=== PATIENT | male | born 1960 | race African-American/Black ===

== ENCOUNTER 2016-09-24 10:37 | Emergency (ER) | payer SELFPAY ==
[2016-09-24 10:41] VITALS: BP 139/80
[2016-09-24] MEDS ORDERED: IPRATROPIUM/ALBUTEROL 0.5-2.5 MG/3 ML AMPUL NEB ONE (10:58)
[2016-09-24] MEDS ORDERED: PREDNISONE 20 MG TABLET PO ONE (10:58)
[2016-09-24] MEDS ORDERED: ALBUTEROL SULFATE HFA (90 MCG/PUFF) 8 GM MDI (1 MDI/ER DISP) IH ONE (11:38)
--- NOTE | 2016-09-24 12:09 | ER Document Report ---
ED General - General Chief Complaint: Breathing Difficulty Stated Complaint: DIFFICULTY BREATHING TRAVEL OUTSIDE OF THE [place] IN LAST 30 DAYS: No - HPI Patient complains to provider of: difficulty breathing Notes: Patient with difficulty breathing ongoing for approximately about a week with sinus drainage and sinus pressure. Patient states coughing or production. Denies fevers chills nausea vomiting denies any chest pain abdominal pain. Patient does smoke and has been smoking for quite a number years. Per patient - Related Data Allergies/Adverse Reactions: No Known Allergies Allergy (Verified 09/24/16 10:39) Past Medical History - Social History Smoking Status: Current Every Day Smoker Chew tobacco use (# tins/day): No Frequency of alcohol use: None Drug Abuse: None Family History: Reviewed & Not Pertinent Patient has suicidal ideation: No Patient has homicidal ideation: No Renal/ Medical History: Denies: Hx Peritoneal Dialysis Surgical Hx: Negative - Immunizations Hx Diphtheria, Pertussis, Tetanus Vaccination: No Review of Systems - Review of Systems Constitutional: No symptoms reported EENT: No symptoms reported Cardiovascular: No symptoms reported Respiratory: Cough, Short of breath Gastrointestinal: No symptoms reported Genitourinary: No symptoms reported Male Genitourinary: No symptoms reported Musculoskeletal: No symptoms reported Skin: No symptoms reported Hematologic/Lymphatic: No symptoms reported Neurological/Psychological: No symptoms reported Physical Exam - Vital signs Vitals: Temp Pulse Resp BP Pulse Ox 98.3 F 97 22 H 139/80 H 95 09/24/16 10:41 09/24/16 10:41 09/24/16 10:41 09/24/16 10:41 09/24/16 10:41 Interpretation: Normal - General General appearance: Appears well, Alert - HEENT Head: Normocephalic, Atraumatic Eyes: Normal Pupils: PERRL - Respiratory Respiratory status: No respiratory distress Chest status: Nontender Breath sounds: Wheezing - Scattered throughout Chest palpation: Normal - Cardiovascular Rhythm: Regular Heart sounds: Normal auscultation Murmur: No - Abdominal Inspection: Normal Distension: No distension Bowel sounds: Normal Tenderness: Nontender Organomegaly: No organomegaly - Back Back: Normal, Nontender - Extremities General upper extremity: Normal inspection, Nontender, Normal color, Normal ROM , Normal temperature General lower extremity: Normal inspection, Nontender, Normal color, Normal ROM , Normal temperature, Normal weight bearing. No: Maria Victoria's sign - Neurological Neuro grossly intact: Yes Cognition: Normal Orientation: AAOx4 Jaclyn Coma Scale Eye Opening: Spontaneous Jaclyn Coma Scale Verbal: Oriented Jaclyn Coma Scale Motor: Obeys Commands Jalcyn Coma Scale Total: 15 Speech: Normal Motor strength normal: LUE, RUE, LLE, RLE Sensory: Normal - Psychological Associated symptoms: Normal affect, Normal mood - Skin Skin Temperature: Warm Skin Moisture: Dry Skin Color: Normal Course - Re-evaluation Re-evalutation: 09/24/16 12:18 Wheezing improve the breathing treatment. Patient states still somewhat similar however chest x-ray does not show any signs of pneumonia. Patient fell signs are otherwise within normal limits. Patient will be discharged home with an inhaler and prednisone. - Vital Signs Vital signs: Temp Pulse Resp BP Pulse Ox 98.3 F 97 22 H 139/80 H 95 09/24/16 10:41 09/24/16 10:41 09/24/16 10:41 09/24/16 10:41 09/24/16 10:41 Discharge - Discharge Clinical Impression: Dyspnea Qualifiers: Dyspnea type: unspecified Qualified Code(s): R06.00 - Dyspnea, unspecified Condition: Good Disposition: HOME, SELF-CARE Instructions: Dyspnea, Nonspecific ([facility]) Additional Instructions: Please take medication as prescribed. Return to the ER symptoms worsen. Chest x-ray does not show any signs of pneumonia today. Your wheezing did improve the breathing treatment. I will recommend continuing the albuterol inhaler that we gave you here in ER 2 puffs every 4 hours for the next 5 days. After that he may use as necessary. Please take the steroids as prescribed. Return to ER symptoms worsen. Prescriptions: Albuterol Sulfate [Proair HFA] 1 - 2 puff IH Q4 PRN #1 inhaler PRN Reason: Cetirizine HCl [Zyrtec] 10 mg PO DAILY #30 tablet Prednisone [Deltasone 20 mg Tablet] 3 tab PO DAILY 5 Days Forms: Smoking Cessation Education, Return to Work
== END 2016-09-24 12:18 | disposition home or self-care (01) ==
LOC: ER 10:37
DX: R06.02 Shortness of breath (principal); J34.89 Other specified disorders of nose and nasal sinuses; F17.200 Nicotine dependence, unspecified, uncomplicated; R05 Cough; R06.2 Wheezing
CPT/HCPCS: 94640; 99284; 71020; J7512; J3490; J7620

== ENCOUNTER 2017-08-02 10:45 | Emergency (ER) | payer OTHER ==
[2017-08-02] MEDS ORDERED: KETOROLAC TROMETHAMINE INJ/PF 30 MG/1 ML SDV IM ONE (11:13)
[2017-08-02] MEDS ORDERED: DEXAMETHASONE SOD PHOS INJ 10 MG/1 ML VIAL IM ONE (11:13)
--- NOTE | 2017-08-02 11:18 | ER Document Report ---
HPI - HPI Pain Level: 4 Notes: Patient is a 57-year-old male with no significant past medical history who presents to the ED complaining of right lower back pain and right buttock pain intermittently over the last month. Patient states that his pain is described as an occasional sharp pain and soreness. Patient states [place] and [place]. Patient does not recall a specific injury. Patient states that the pain will radiate in from his right back to his right buttock and vice versa, but does not extend to the lower leg. Patient states that he is still eating and drinking without any difficulties. He is urinating normally and having normal bowel movements. He has not had any recent illness. Patient denies any IV drug use, previous injections or surgery to his lower back, or diabetes. Denies any previous history of spinal abscess. Denies any headache, fever, neck pain, URI, sore throat, chest pain, palpitations, syncope, cough, shortness of breath, wheeze, dyspnea, abdominal pain, nausea/vomiting/diarrhea, urinary retention, dysuria, hematuria, loss of control of bowel or bladder, numbness/tingling, saddle anesthesia, muscle paralysis/weakness, or rash. . Pt requesting work note. Pt reports having back pain in the past as well on occasion. - ROS Systems Reviewed and Negative: Yes All other systems reviewed and negative Past Medical History - Social History Smoking Status: Unknown if Ever Smoked Family History: Reviewed & Not Pertinent Renal/ Medical History: Denies: Hx Peritoneal Dialysis - Immunizations Hx Diphtheria, Pertussis, Tetanus Vaccination: No Vertical Provider Document - CONSTITUTIONAL Agree With Documented VS: Yes Notes: PHYSICAL EXAMINATION: GENERAL: Well-appearing, well-nourished and in no acute distress. LUNGS: Breath sounds clear to auscultation bilaterally and equal. No wheezes rales or rhonchi. HEART: Regular rate and rhythm without murmurs, rubs, gallops. ABDOMEN: Soft, nontender, nondistended abdomen. No guarding, no rebound. No masses appreciated. Normal bowel sounds present. No CVA tenderness bilaterally. No obvious pulsatile mass Musculoskeletal: LE's b/l: FROM to passive/active. Strength 5+/5. No deficits noted. No bony tenderness of extremities. Back: FROM to passive/active. Strength 5+/5. No vertebral point tenderness, stepoffs, or deformities. No other bony tenderness, erythema, swelling, or ecchymosis. SLR negative b/l. + mild tenderness to the rt L-paraspinal mm. Mild spasming. + right SI jt tenderness. No foot drop Extremities: No cyanosis, clubbing, or edema b/l. Peripheral pulses 2+. Capillary refill less than 2 seconds. NEUROLOGICAL: Normal speech, ataxic gait. Normal sensory, motor exams. Reflexes 2+ b/l. PSYCH: Normal mood, normal affect. SKIN: Warm, Dry, normal turgor, no rashes or lesions noted. - INFECTION CONTROL TRAVEL OUTSIDE OF THE [place] IN LAST 30 DAYS: No - RESPIRATORY O2 Sat by Pulse Oximetry: 94 Course - Re-evaluation Re-evalutation: 08/02/17 12:34 Patient is an afebrile, well-hydrated, 57-year-old male who presents to the ED with right lower back pain and right sacroiliitis. Vitals are stable. PE is otherwise unremarkable for any focal neurological deficits. L-spine x-ray was unremarkable for any acute pathology. No other labs or imaging warranted at this time based on H&P. Decadron and Toradol given IM today. Low suspicion for any meningitis, fracture, expanding/ruptured AAA, cauda equina syndrome, epidural mass lesion/abscess, herniated disc causing severe spinal stenosis, or other systemic infection at this time. Patient is aware that his condition can change from initial presentation and that he needs monitor symptoms closely for any acute changes. I will send him home with a prescription for naproxen and baclofen. Conservative measures otherwise for symptoms with close monitoring. Recheck with your PCM in 3-5 days. Consider consult orthopedics/physical therapy. Return to the ED with any worsening/concerning symptoms otherwise as reviewed discharge. Patient is in agreement. - Vital Signs Vital signs: Temp Pulse Resp BP Pulse Ox 98.3 F 87 14 103/70 94 08/02/17 11:00 08/02/17 11:00 08/02/17 11:00 08/02/17 11:08/02/17 11:00 Discharge - Discharge Clinical Impression: Sacroiliitis Low back pain Qualifiers: Chronicity: acute Back pain laterality: right Sciatica presence: without sciatica Qualified Code(s): M54.5 - Low back pain Condition: Stable Disposition: HOME, SELF-CARE Instructions: Ice Packs ([facility]), Low Back Pain ([facility]), Muscle Relaxers ([facility]), Muscle Strain ([facility]), Stretching Exercises for the Back ([facility]), Warm Packs ([facility]) Additional Instructions: Rest, Ice Tylenol/ibuprofen as needed Light stretches daily Strength exercises as able Moist heat and massage may help F/u with your PCP in 3-5 days for a recheck Consider consult(s) with Orthopedics/physical therapy for ongoing/worsening symptoms Return to the ED with any worsening symptoms and/or development of fever, headache, chest pain, palpitations, syncope, shortness of breath, trouble breathing, abdominal pain, n/v/d, blood in stool/urine, loss of control of bowel /bladder, urinary retention, muscle weakness/paralysis, saddle anesthesia, numbness/tingling, or other worsening symptoms that are concerning to you. Prescriptions: Baclofen [Baclofen 10 mg Tablet] 5 - 10 mg PO BID PRN #10 tablet PRN Reason: Naproxen 500 mg PO BID PRN #30 tablet PRN Reason: Forms: Return to Work Referrals: [facility] [Provider Group] - Follow up as needed
--- NOTE | 2017-08-02 12:22 | RADIOLOGY REPORT (SQ) ---
EXAM DESCRIPTION: L SPINE WHOLE COMPLETED DATE/TIME: 08/02/2017 12:04 pm REASON FOR STUDY: rt low back pain COMPARISON: None. NUMBER OF VIEWS: Five views including obliques. TECHNIQUE: AP, lateral, oblique, and sacral radiographic images acquired of the lumbar spine. LIMITATIONS: None. FINDINGS: MINERALIZATION: Normal. SEGMENTATION: There appears to be at least partial sacralization of L5 on the right. ALIGNMENT: Normal. VERTEBRAE: Maintained height. No fracture or worrisome bone lesion. DISCS: Preserved height. No significant osteophytes or end plate irregularity. POSTERIOR ELEMENTS: Pedicles and facets are intact. No pars defect or posterior arch defects. HARDWARE: None in the spine. PARASPINAL SOFT TISSUES: Normal. PELVIS: Intact as visualized. No fractures or worrisome bone lesions. SI joints intact. OTHER: No other significant finding. IMPRESSION: L5 appears to represent a transitional vertebra. No acute abnormality is seen. TECHNICAL DOCUMENTATION: JOB ID: [id number] [employer]- All Rights Reserved Reading location - IP/workstation name: [email or web address]
[2017-08-02 13:13] VITALS: BP 120/76
== END 2017-08-02 13:00 | disposition home or self-care (01) ==
LOC: ER 10:45
DX: M46.1 Sacroiliitis, not elsewhere classified (principal); M54.5 Low back pain
CPT/HCPCS: 99283; 96372; 72110; J1885; J1100

== ENCOUNTER 2019-12-25 10:39 | Emergency (ER) | payer OTHER ==
[2019-12-25] MEDS ORDERED: IPRATROPIUM/ALBUTEROL 0.5-2.5 MG/3 ML AMPUL NEB ONE (11:25)
--- NOTE | 2019-12-25 11:27 | ER Document Report ---
ED Medical Screen (RME) - General Chief Complaint: Cough Stated Complaint: COUGH,CONGESTION Time Seen by Provider: 12/25/19 11:20 TRAVEL OUTSIDE OF THE [place] IN LAST 30 DAYS: No - HPI Notes: 12/25/19 11:52 59-year-old male presents to the emergency room with left-sided chest pain and shortness of breath that is become progressively worse over the last day. Patient denies any history of asthma, he does smoke about a half a pack a day for the last 40 years or so. Denies any fevers chills, nausea vomiting or diarrhea. Patient states that he has had this left-sided chest pain sometimes it is worse with coughing sometimes it is not. Has not been seen by a medical provider in "years". Denies any medical problems. Denies any heart history. I have greeted and performed a rapid initial assessment of this patient. A comprehensive ED assessment and evaluation of the patient, analysis of test results and completion of the medical decision making process will be conducted by additional ED providers. PHYSICAL EXAMINATION: GENERAL: Well-appearing, well-nourished and in no acute distress. NECK: Normal range of motion CV: s1, s2 regular LUNGS: Wheezing heard in all lobes throughout - Related Data Allergies/Adverse Reactions: No Known Allergies Allergy (Verified 08/02/17 10:45) Past Medical History Renal/ Medical History: Denies: Hx Peritoneal Dialysis - Immunizations Hx Diphtheria, Pertussis, Tetanus Vaccination: No
[2019-12-25 12:58] LABS: ABSOLUTE EOSINOPHILS # (AUTO) 0.1 10^3/uL (0.0-0.6); ABSOLUTE LYMPHOCYTES (AUTO) 1.9 10^3/uL (0.5-4.7); ABSOLUTE MONOCYTES (AUTO) 1.2 10^3/uL (0.1-1.4); ABSOLUTE NEUT (AUTO) 4.7 10^3/uL (1.7-8.2); BASOPHILS % (AUTO) 0.5 % (0-2); EOSINOPHILS % (AUTO) 1.3 % (0-6); HEMOGLOBIN 13.8 g/dL (13.5-17.0); LYMPHOCYTES % (AUTO) 24.3 % (13-45); MEAN CORPUSCULAR HEMOGLOBIN 33.2 pg (27.0-33.4); MEAN CORPUSCULAR HGB CONC 34.5 g/dL (32.0-36.0); MEAN CORPUSCULAR VOLUME 96 fl (80-97); MONOCYTES % (AUTO) 15.1 % (3-13); PLATELET COUNT 236 10^3/uL (150-450); RED BLOOD COUNT 4.16 10^6/uL (4.35-5.55); SEGMENTED NEUTROPHILS % (AUTO) 58.8 % (42-78); TOTAL CELLS COUNTED % (AUTO) 100 %
[2019-12-25 13:15] LABS: ALBUMIN 4.6 g/dL (3.5-5.0); ALKALINE PHOSPHATASE 76 U/L (38-126); ANION GAP 8 (5-19); ASPARTATE AMINO TRANSFERASE 35 U/L (17-59); BILIRUBIN,TOTAL 0.3 mg/dL (0.2-1.3); BLOOD UREA NITROGEN 11 mg/dL (7-20); CALCIUM 9.5 mg/dL (8.4-10.2); CARBON DIOXIDE 26 mmol/L (22-30); CHLORIDE 105 mmol/L (98-107); GLUCOSE 122 mg/dL (75-110); POTASSIUM 4.4 mmol/L (3.6-5.0); TOTAL PROTEIN 8.1 g/dL (6.3-8.2)
--- NOTE | 2019-12-25 14:07 | RADIOLOGY REPORT (SQ) ---
EXAM DESCRIPTION: CHEST SINGLE VIEW IMAGES COMPLETED DATE/TIME: 12/25/2019 1:57 pm REASON FOR STUDY: cough COMPARISON: 09/24/2016 EXAM PARAMETERS: NUMBER OF VIEWS: One view. TECHNIQUE: Single frontal radiographic view of the chest acquired. RADIATION DOSE: NA LIMITATIONS: None. FINDINGS: LUNGS AND PLEURA: No opacities, masses or pneumothorax. No pleural effusion. MEDIASTINUM AND HILAR STRUCTURES: No masses. Contour normal. HEART AND VASCULAR STRUCTURES: Mild cardiac enlargement. No failure. BONES: No acute findings. HARDWARE: None in the chest. OTHER: No other significant finding. IMPRESSION: Mild cardiomegaly. No other significant findings. TECHNICAL DOCUMENTATION: JOB ID: [id number] [employer]- All Rights Reserved Reading location - IP/workstation name: [email or web address]
[2019-12-25 15:06] LABS: NT PRO BNP 30 pg/mL (<125); TROPONIN I < 0.012 ng/mL
--- NOTE | 2019-12-25 17:25 | ER Document Report ---
Entered by ANA HUYNH SCRIBE 12/25/19 1325 Acting as scribe for:BONIFACIO DAO MD ED Respiratory Problem - General Chief Complaint: Congestion Stated Complaint: COUGH,CONGESTION Time Seen by Provider: 12/25/19 11:20 Mode of Arrival: Ambulatory Information source: Patient Notes: This 59-year-old male patient presents to the emergency department today with complaints of a nonproductive cough with shortness of breath that began yesterday. Patient states it "hurts his brain when he coughs". Patient has had associated nasal congestion but denies a sore throat, fevers, chills, known sick contacts, or change in taste/smell. TRAVEL OUTSIDE OF THE [place] IN LAST 30 DAYS: No - Related Data Allergies/Adverse Reactions: No Known Allergies Allergy (Verified 12/25/19 13:07) Past Medical History - General Information source: Patient - Social History Smoking Status: Current Every Day Smoker Cigarette use (# per day): Yes Chew tobacco use (# tins/day): No Frequency of alcohol use: None Drug Abuse: None Lives with: Family Family History: Reviewed & Not Pertinent Patient has homicidal ideation: No - Medical History Medical History: Negative Surgical Hx: Negative - Immunizations Hx Diphtheria, Pertussis, Tetanus Vaccination: No Review of Systems - Review of Systems Constitutional: denies: Chills, Fever EENT: See HPI, Nose congestion, Sinus discharge. denies: Throat pain Cardiovascular: No symptoms reported Respiratory: See HPI, Cough, Short of breath Gastrointestinal: No symptoms reported Genitourinary: No symptoms reported Male Genitourinary: No symptoms reported Musculoskeletal: No symptoms reported Skin: No symptoms reported Hematologic/Lymphatic: No symptoms reported Neurological/Psychological: No symptoms reported -: Yes All other systems reviewed and negative Physical Exam - Vital signs Vitals: Temp Pulse Resp BP Pulse Ox 98.1 F 87 18 130/78 H 93 12/25/19 12:34 12/25/19 12:34 12/25/19 12:34 12/25/19 12:34 12/25/19 12:34 - Notes Notes: Physical Exam: General: Alert, appears well. HEENT: Normocephalic. Atraumatic. PERRL. Extraocular movements intact. Posterior oropharynx erythema. Turbinate edema Right > Left. Neck: Supple. Non-tender. Respiratory: No respiratory distress. Coughs when taking deep breaths, bibasilar rhonchi. Cardiovascular: Regular rate and rhythm. Abdominal: Normal Inspection. Non-tender. No distension. Normal Bowel Sounds. Back: No gross abnormalities. Extremities: Moves all four extremities. Upper extremities: Normal inspection. Normal ROM. Lower extremities: Normal inspection. No edema. Normal ROM. Neurological: Normal cognition. AAOx4. Normal speech. Psychological: Normal affect. Normal Mood. Skin: Warm. Dry. Normal color. Course - Re-evaluation Re-evalutation: 12/25/19 17:21 Patient resting comfortably not showing any signs of distress at this time. - Vital Signs Vital signs: Temp Pulse Resp BP Pulse Ox 98.1 F 87 18 130/78 H 93 12/25/19 13:07 12/25/19 12:34 12/25/19 12:34 12/25/19 12:34 12/25/19 12:34 12/25/19 17:21 Vital signs stable pulse oximetry 93%. - Laboratory Result Diagrams: 12/25/19 12:45 12/25/19 12:45 Laboratory results interpreted by me: 12/25/19 12/25/19 12:45 12:45 RBC 4.16 L Brooks % (Auto) 15.1 H Glucose 122 H ALT 54 H 12/25/19 17:21 Vital signs stable. Laboratories within normal range except for glucose of 122 and ALT of 54. - Diagnostic Test Radiology reviewed: Image reviewed, Reports reviewed Radiology results interpreted by me: 12/25/19 17:21 Chest x-ray shows mild cardiomegaly no acute process otherwise - EKG Interpretation by Me Additional EKG results interpreted by me: 12/25/19 17:22 Twelve-lead EKG shows normal sinus rhythm and rate no acute changes no ST T wave changes. Discharge - Discharge Clinical Impression: Acute bronchitis, Suspected COVID-19 virus infection Condition: Stable Disposition: HOME, SELF-CARE Instructions: COVID-19 Guidance for Persons Under Investigation Additional Instructions: Bronchitis You have acute bronchitis. This disease is an infection or inflammation of the air passageways in your lungs. Symptoms usually include cough, low grade fever, shortness of breath, and wheezing. The cough usually persists for a couple of weeks. Most cases of bronchitis get better without antibiotics. We prescribe antibiotics when we believe bacteria are damaging your airways, or if there's high risk the bronchitis will worsen into pneumonia. Increase your fluid intake. A cool mist humidifier may make your lungs more comfortable. An expectorant (cough medicine that loosens phlegm) can help. If you smoke, STOP!!! Recovery from bronchitis can be somewhat slow, but you should see improvement within a day or two. Repeated episodes of bronchitis may result in lung damage -- for example, chronic bronchitis, recurrent pneumonias, or emphysema. Call the doctor if you develop increasing fever, shortness of breath, chest pain, bloody sputum, or otherwise worsen. If you have not improved at all after several days, contact the physician. Prescriptions: Amoxicillin 875 mg PO BID #20 tablet Guaifenesin/Dextromethorphan [Mucinex Dm ER 600-30 mg Tablet] 1 each PO BID 10 Days #20 tab.er.12h Forms: Return to Work I personally performed the services described in the documentation, reviewed and edited the documentation which was dictated to the scribe in my presence, and it accurately records my words and actions.
[2019-12-25 17:34] VITALS: BP 129/74
--- NOTE | 2019-12-25 20:27 | EKG REPORT ---
SEVERITY:- NORMAL ECG - SINUS RHYTHM : Confirmed by: Jesse Weiss MD 25-Dec-2019 20:26:37
== END 2019-12-25 17:34 | disposition home or self-care (01) ==
LOC: ER 10:39
DX: R05 Cough (principal); R06.02 Shortness of breath; R09.81 Nasal congestion; F17.210 Nicotine dependence, cigarettes, uncomplicated; I51.7 Cardiomegaly; Z20.828 Contact with and (suspected) exposure to other viral communicable diseases
CPT/HCPCS: 93005; 94640; 99284; 36415; 87070; 87880; 85025; 87635; 87077; 80053; 84484; 83880; 71045; 93010; C9803